=== PATIENT | male | born 1950 | race Caucasian/White ===

== ENCOUNTER 2017-04-09 09:07 | Emergency (ER) | payer MEDICARE ==
[~2017-04-09] VITALS: Ht 185.4 cm; Wt 102.6 kg
[2017-04-09] MEDS ORDERED: ASPIRIN 81 MG TABLET CHEW ONE (09:49)
[2017-04-09] MEDS ORDERED: ASPIRIN 81 MG TABLET CHEW PO ONE (10:00)
[2017-04-09] MEDS ORDERED: SODIUM CHLORIDE FLUSH 10ML SYR IVF ONE (10:00)
[2017-04-09] MEDS ORDERED: LANS15TA5 PO (10:22)
[2017-04-09 10:24] LABS: BLOOD UREA NITROGEN 11 mg/dL (7-18)
[2017-04-09 10:30] LABS: ASPARTATE AMINO TRANSFERASE 14 U/L (15-37)
[2017-04-09 10:31] LABS: IS PT STATUS REG ER OR PRE ER? YES
[2017-04-09 13:46] LABS: IS PT STATUS REG ER OR PRE ER? YES
[2017-04-09 14:34] VITALS: BP 135/77
== END 2017-04-09 14:40 | disposition home or self-care (01) ==
LOC: ED 09:51
DX: R07.89 Other chest pain (principal); F43.23 Adjustment disorder with mixed anxiety and depressed mood; R53.83 Other fatigue; J45.909 Unspecified asthma, uncomplicated; Z88.0 Allergy status to penicillin; Z88.1 Allergy status to other antibiotic agents; Z88.5 Allergy status to narcotic agent
CPT/HCPCS: 36415; 71010; 80053; 84484; 85025; 93005; 99285

== ENCOUNTER → 2017-06-19 | Outpatient (CLI) | payer MEDICARE ==
[~2017-06-19] MED LIST: LANS15TA6 PO
== END | disposition home or self-care (01) ==
LOC: CFH 13:40
PROVIDERS: ATTEND Nurse Practitioner Primary Care
DX: I25.10 Atherosclerotic heart disease of native coronary artery without angina pectoris (principal); Z12.2 Encounter for screening for malignant neoplasm of respiratory organs; F17.210 Nicotine dependence, cigarettes, uncomplicated; M47.894 Other spondylosis, thoracic region
CPT/HCPCS: G0297

== ENCOUNTER → 2017-06-27 | Outpatient (CLI) | payer MEDICARE | END | disposition home or self-care (01) | LOC: CFH 06:56 | PROVIDERS: ATTEND Internal Medicine Cardiovascular Disease | DX: I37.1 Nonrheumatic pulmonary valve insufficiency (principal); F17.200 Nicotine dependence, unspecified, uncomplicated | CPT/HCPCS: 78452; 93306; A9502 ==

== ENCOUNTER → 2017-07-05 | Outpatient (CLI) | payer MEDICARE ==
[2017-07-05 12:16] LABS: PROSTATE SPECIFIC ANTIGEN 2.35 ng/mL (0.00-4.00)
== END | disposition home or self-care (01) ==
LOC: CFH 10:56
PROVIDERS: ATTEND Nurse Practitioner Primary Care
DX: Z13.220 Encounter for screening for lipoid disorders (principal); Z12.11 Encounter for screening for malignant neoplasm of colon; R53.83 Other fatigue; J45.909 Unspecified asthma, uncomplicated; K21.9 Gastro-esophageal reflux disease without esophagitis; E16.2 Hypoglycemia, unspecified; N52.9 Male erectile dysfunction, unspecified; J30.9 Allergic rhinitis, unspecified; G47.00 Insomnia, unspecified; R97.20 Elevated prostate specific antigen [PSA]; R73.01 Impaired fasting glucose; Z78.9 Other specified health status
CPT/HCPCS: 36415; 82533; 83525; 84153; 84443

== ENCOUNTER → 2017-08-12 | Outpatient (CLI) | payer MEDICARE ==
[~2017-08-12] MED LIST changes: +AMINOPHYLLINE 25 MG/ML, 10ML ONE; +REGADENOSON 0.4 MG/5 ML SYRINGE ONE
== END | disposition home or self-care (01) ==
LOC: CFH 07:24
PROVIDERS: ATTEND Internal Medicine Cardiovascular Disease
DX: R07.9 Chest pain, unspecified (principal)
CPT/HCPCS: 78452; 93017; A9502; J0280; J2785

== ENCOUNTER → 2017-10-07 | Outpatient (CLI) | payer MEDICARE ==
[~2017-10-07] MED LIST changes: -AMINOPHYLLINE 25 MG/ML, 10ML ONE; -REGADENOSON 0.4 MG/5 ML SYRINGE ONE
== END | disposition home or self-care (01) ==
LOC: CFH 10:12
PROVIDERS: ATTEND Internal Medicine
DX: I77.810 Thoracic aortic ectasia (principal); R91.1 Solitary pulmonary nodule
CPT/HCPCS: 71250

== ENCOUNTER 2017-10-28 10:33 | Emergency (ER) | payer MEDICARE ==
[~2017-10-28] VITALS: Ht 185.4 cm; Wt 103.4 kg
[2017-10-28] MEDS ORDERED: ALBU8.5H8 INH (11:10)
[2017-10-28] MEDS ORDERED: FLUT1DIS3 INH (11:10)
[2017-10-28] MEDS ORDERED: FLUT9.9S NAS (11:10)
[2017-10-28] MEDS ORDERED: SODIUM CHLORIDE 0.9% 1,000ML IVBOLUS ONE (11:30)
[2017-10-28] MEDS ORDERED: SODIUM CHLORIDE FLUSH 10ML SYR IVF ONE (11:30)
[2017-10-28 12:08] LABS: BASOPHILS # (AUTO) 0.04 x10^3/uL (0-0.1); BASOPHILS % (AUTO) 0 % (0-1); EOSINOPHILS # (AUTO) 0.09 x10^3/uL (0-0.4); EOSINOPHILS % (AUTO) 1 % (1-7); LYMPHOCYTES # (AUTO) 1.64 x10^3/uL (1-3.4); LYMPHOCYTES % (AUTO) 18 % (22-44); MD NO; MEAN CORPUSCULAR HGB CONC 33.6 g/dL (33.2-36.2); MEAN CORPUSCULAR VOLUME 95.3 fL (81-97); MEAN PLATELET VOLUME 8.4 fL (7.4-10.4); MONOCYTES # (AUTO) 0.81 x10^3/uL (0.2-0.8); MONOCYTES % (AUTO) 9 % (2-9); NEUTROPHILS % (AUTO) 72 % (42-75); PLATELET COUNT 206 x10^3/uL (130-400); RED BLOOD COUNT 5.68 x10^6/uL (4.38-5.82); RED CELL DISTRIBUTION WIDTH 12.9 % (9.4-14.8)
[2017-10-28 12:09] LABS: MICROSCOPIC NOT IND
[2017-10-28 12:10] LABS: ALANINE AMINOTRANSFERASE 30 U/L (12-78); ALBUMIN 3.6 g/dL (3.4-5.0); ANION GAP 7 mmol/L (5-15); CALCIUM 8.8 mg/dL (8.5-10.1); CHLORIDE 107 mmol/L (98-107)
[2017-10-28 12:13] LABS: ALKALINE PHOSPHATASE 67 U/L (45-117); BILIRUBIN,TOTAL 0.6 mg/dL (0.2-1.0); CREATININE 0.87 mg/dL (0.7-1.3); TOTAL PROTEIN 6.7 g/dL (6.4-8.2)
[2017-10-28 12:15] LABS: TROPONIN I < 0.015 ng/mL (0.000-0.045)
[2017-10-28 12:19] LABS: CULTURE INDICATED? NO
[2017-10-28 13:55] VITALS: BP 119/65
== END 2017-10-28 14:04 | disposition home or self-care (01) ==
LOC: ED 11:58
DX: M54.5 Low back pain (principal); R10.9 Unspecified abdominal pain; J45.909 Unspecified asthma, uncomplicated; Z88.0 Allergy status to penicillin; Z88.1 Allergy status to other antibiotic agents; Z88.5 Allergy status to narcotic agent
CPT/HCPCS: 36415; 76700; 80053; 81003; 83690; 84484; 85025; 93005; 96360; 96361; 99285; J7030

== ENCOUNTER → 2018-03-12 | Outpatient (CLI) | payer MEDICARE ==
[~2018-03-12] MED LIST changes: +ALBU8.5H8 INH; +FLUT1DIS3 INH; +FLUT9.9S NAS
== END | disposition home or self-care (01) ==
LOC: CVU 14:07
PROVIDERS: ATTEND Nurse Practitioner Family
DX: R07.9 Chest pain, unspecified (principal); R94.31 Abnormal electrocardiogram [ECG] [EKG]; R60.9 Edema, unspecified; I25.2 Old myocardial infarction; F17.200 Nicotine dependence, unspecified, uncomplicated
CPT/HCPCS: 93306

== ENCOUNTER → 2018-05-08 | Outpatient (CLI) | payer MEDICARE | END | disposition home or self-care (01) | LOC: CVU 09:44 | PROVIDERS: ATTEND Internal Medicine Cardiovascular Disease | DX: I87.2 Venous insufficiency (chronic) (peripheral) (principal); I83.813 Varicose veins of bilateral lower extremities with pain | CPT/HCPCS: 93970 ==

== ENCOUNTER → 2018-12-12 | Outpatient (CLI) | payer MEDICARE ==
[2018-12-12 12:44] LABS: ALANINE AMINOTRANSFERASE 22 U/L (12-78); ALBUMIN 3.6 g/dL (3.4-5.0); ANION GAP 3 mmol/L (5-15); CALCIUM 8.3 mg/dL (8.5-10.1); CHLORIDE 109 mmol/L (98-107); CHOLESTEROL, TOTAL 155 mg/dL (140-239); CREATININE 0.84 mg/dL (0.7-1.3)
[2018-12-12 12:47] LABS: ALKALINE PHOSPHATASE 69 U/L (45-117); BILIRUBIN,TOTAL 0.6 mg/dL (0.2-1.0); CHOL/HDL RATIO 3.1; HDL CHOL % 32 % (26-37); HDL CHOLESTEROL (DIRECT) 50 mg/dL (40-60); LDL CHOLESTEROL,CALCULATED 91 mg/dL (54-169); LDL/HDL RATIO 1.8 (0.5-3.0); TOTAL PROTEIN 6.4 g/dL (6.4-8.2); TRIGLYCERIDES 68 mg/dL (50-200); VLDL CHOLESTEROL 14 mg/dL (0-25)
== END | disposition home or self-care (01) ==
LOC: CFH 07:31
PROVIDERS: ATTEND Internal Medicine Cardiovascular Disease
DX: E78.5 Hyperlipidemia, unspecified (principal)
CPT/HCPCS: 36415; 80053; 80061

== ENCOUNTER → 2019-02-12 | Outpatient (CLI) | payer MEDICARE | END | disposition home or self-care (01) | LOC: CFH 11:44 | PROVIDERS: ATTEND Nurse Practitioner Primary Care | DX: M25.872 Other specified joint disorders, left ankle and foot (principal); J45.909 Unspecified asthma, uncomplicated; K21.9 Gastro-esophageal reflux disease without esophagitis; I25.10 Atherosclerotic heart disease of native coronary artery without angina pectoris; E78.1 Pure hyperglyceridemia ==